=== PATIENT | male | born 1995 | race Native Hawaiian/Other Pacific Islander ===

== ENCOUNTER 2016-07-23 10:14 | Emergency (ER) | payer OTHER ==
[~2016-07-23] VITALS: Ht 188 cm; Wt 97.5 kg
[2016-07-23 10:52] LABS: PLATELET COUNT 191 K/uL (142-355)
[2016-07-23 10:55] LABS: POTASSIUM 3.7 mmol/L (3.6-5.2); SODIUM 137 mmol/L (136-145)
== END 2016-07-23 11:26 | disposition home or self-care (01) ==
LOC: ED 10:14
DX: J06.9 Acute upper respiratory infection, unspecified (principal); J35.1 Hypertrophy of tonsils
CPT/HCPCS: 36415; 80053; 85027; 87077; 87081; 87185; 87804; 87880; 99283